=== PATIENT | female | born 1980 | race African-American/Black ===

== ENCOUNTER 2017-12-01 08:32 | Inpatient (IN) | payer OTHER ==
[2017-11-30 10:58] VITALS: BMI 40.6
[2017-12-01] MEDS ORDERED: MIDAZOLAM HCL 2 MG/2 ML SINGLE DOSE VIAL ONE (10:14)
[2017-12-01] MEDS ORDERED: fentaNYL CITRATE 250 MCG/5 ML VIAL ONE (10:34)
[2017-12-01] MEDS ORDERED: ROCURONIUM BROMIDE 50 MG/5 ML VIAL ONE ×2 (10:34→11:42)
[2017-12-01] MEDS ORDERED: PROPOFOL 20 ML ONE (10:35)
[2017-12-01] MEDS ORDERED: ceFAZolin SODIUM 1 GM VIAL IVPB ONE (10:43)
[2017-12-01] MEDS ORDERED: ceFAZolin SODIUM 1 GM VIAL ONE ×2 (11:02→11:42)
[2017-12-01] MEDS ORDERED: DEXAMETHASONE SOD PHOSPHATE 4 MG/1 ML VIAL ONE (11:42)
[2017-12-01] MEDS ORDERED: LIDOCAINE HCL/PF 2% SDV 5ML VIAL ONE (11:42)
[2017-12-01] MEDS ORDERED: LIDOCAINE HCL 2% JELLY (5 ML/TUBE) ONE (11:42)
[2017-12-01] MEDS ORDERED: NEOSTIGMINE METHYLSULFATE 0.5 MG/ML - 10 ML MDV ONE (12:27)
[2017-12-01] MEDS ORDERED: GLYCOPYRROLATE 0.2 MG/1 ML VIAL ONE (12:27)
--- NOTE | 2017-12-01 12:51 | HP ---
History & Physical Update - History History: No Change - Physical Physical: No Change - Assessment Assessment: No Change - Plan Plan: No Change Currently as noted:: Robotic vertical sleeve gastrectomy possible open
--- NOTE | 2017-12-01 12:53 | OP ---
Operative Note - Note: Operative Date: 12/01/17 Pre-Operative Diagnosis: Morbid obesity Operation: Robotic vertical sleeve gastrectomy, wedge liver biopsy, EGD Post-Operative Diagnosis: Other (Morbid obesity, hepatomegaly) Surgeon: Jean-Claude Schuster Materials Director: Rupesh Yeager Anesthesia: General Specimens Removed: Greater curvature of stomach, left lobe wedge liver biopsy Estimated Blood Loss (mls): 30 Drains & Tubes with Location: 36 Fr Bougie Operative Report Dictated: Yes
[2017-12-01] MEDS: HYDROmorphone HCL CARPU-JECT 1 MG/1 ML DISP.SYRIN IVPUSH PRN ×4 (12:58→15:30)
[2017-12-01] MEDS ORDERED: HYDROmorphone HCL CARPU-JECT 2 MG/1 ML DISP.SYRIN ONE ×2 (12:59→13:35)
[2017-12-01] MEDS: ACETAMINOPHEN 1000 MG/100 ML VIAL (NON FORMULARY) IVPB SCH ×2 (13:00→18:55)
[2017-12-01] MEDS ORDERED: BUPIVACAINE HCL/PF 0.5% (5MG/ML) 10 ML VIAL IJ ONE (13:03)
--- NOTE | 2017-12-01 13:05 | SURG ---
Surgery Profiling Machine Operator Note Profiling Machine Operator: Rupesh Yeager PA-C Date of Service: 12/01/17 Diagnosis: Morbid obesity Procedure: Robotic vertical sleeve gastrectomy, wedge liver biopsy, EGD I was present for the entirety of the operative procedure. For further detail, please refer to operative report. Visit type - Case Type Case Type: Scheduled Admission - New patient This patient is new to me today: Yes Date on this admission: 12/01/17
[2017-12-01] MEDS: METOCLOPRAMIDE HCL INJECTION 10 MG/2 ML VIAL IVPUSH SCH ×2 (13:10→18:27)
[2017-12-01] MEDS ORDERED: ONDANSETRON 4 MG/2 ML VIAL IVPUSH PRN (13:17)
[2017-12-01] MEDS: ONDANSETRON 4 MG/2 ML VIAL IVPUSH SCH ×3 (13:20→20:47)
[2017-12-01] MEDS ORDERED: LACTATED RINGERS SOLUTION 1,000 ML IV SCH (13:30)
[2017-12-01 13:38] LABS: HEMATOCRIT 34.4 % (32.4-45.2); HEMOGLOBIN 10.7 GM/dL (10.7-15.3); MCH 26.6 pg (25.7-33.7); MEAN CELL VOLUME 85.7 fl (80-96); MEAN PLT VOLUME 6.4 fl (7.5-11.1); PLATELET COUNT 342 K/MM3 (134-434); RBC 4.01 M/mm3 (3.60-5.2); RDW 16.5 % (11.6-15.6); WHITE BLOOD COUNT 13.6 K/mm3 (4.0-10.0)
[2017-12-01 14:26] LABS: ALBUMIN 3.2 g/dl (3.4-5.0); ANION GAP 9 (8-16); BLOOD UREA NITROGEN 8 mg/dL (7-18); CALCIUM 8.6 mg/dL (8.5-10.1); CHLORIDE 105 mmol/L (98-107); CO2 26 mmol/L (21-32); CREATININE 0.6 mg/dL (0.55-1.02); GLUCOSE,RANDOM 112 mg/dL (74-106); POTASSIUM 3.6 mmol/L (3.5-5.1); SGOT/AST 18 U/L (15-37); SGPT/ALT 18 U/L (12-78); SODIUM 140 mmol/L (136-145)
[2017-12-01 14:27] LABS: ALK PHOS 55 U/L (45-117); BILIRUBIN,TOTAL 0.4 mg/dL (0.2-1.0)
[2017-12-01] MEDS: SODIUM CHLORIDE 1,000 ML IV SCH (15:00)
[2017-12-01] MEDS: HYDROmorphone HCL CARPU-JECT 2 MG/1 ML DISP.SYRIN IVPB PRN (18:13)
--- NOTE | 2017-12-01 18:50 | SPEC ---
DATE OF OPERATION: 12/01/2017 SURGEON: Jean-Claude Schuster M.D. ELECTRONIC MUSICAL INSTRUMENT REPAIRER: Wendy Rebolledo PREOPERATIVE DIAGNOSIS: Morbid obesity, body mass index 40.6. POSTOPERATIVE DIAGNOSIS: Morbid obesity, body mass index 40.6, and hepatomegaly. PROCEDURE: Robotic vertical sleeve gastrectomy, robotic wedge liver biopsy, and upper endoscopy/esophagogastroduodenoscopy. SPECIMENS: Greater curvature of the stomach and left lobe wedge liver biopsy. ESTIMATED BLOOD LOSS: 30 mL. DRAINS: None. ANESTHESIA: GET 36 Polish bougie. REASON FOR THE PROCEDURE: This is a 37-year-old female who presents to the office for weight loss options. After describing different options, decided to proceed with a robotic vertical sleeve gastrectomy, possible liver biopsy and upper endoscopy , possible open. RISKS AND BENEFITS: After describing the different options for management of weight loss, the patient decided to proceed with a robotic laparoscopic, possible open vertical sleeve gastrectomy. The patient was seen by the respective subspecialities and cleared for surgery. The risks and benefits of the procedure were explained. These included bleeding, infection, hernia, OR, DVT, PE, injury to surrounding structures including the liver, colon, bowel, spleen, esophagus, vessel injury, nerve injury, weight regain, gastric leak, staple line leak, sleeve leak, obstruction, vitamin deficiency, hair loss, and as some of the possible complications. The patient understood and signed informed consent. DESCRIPTION OF PROCEDURE: The patient was placed supine on the operating room table. The patient underwent general endotracheal intubation. A Alanis catheter was inserted by the nursing staff. The arms were brought out at 90 degrees and secured. A foot board was placed and the legs were secured laterally with padding. The abdomen was prepped and draped in the usual sterile fashion. A time-out was performed. An incision was made superior and to the left of the umbilicus. A Veress needle was inserted. Pneumoperitoneum was established. Subsequently the Veress needle was removed. An 8-mm robotic trocar was placed under direct visualization with the laparoscope. Inspection of the abdominal cavity was performed. An 8-mm trocar was then placed in the left abdominal wall approximately 6 to 7 cm to the left of the initial trocar. An 8-mm robotic trocar was then placed in the left abdominal wall approximately 6 to 7 cm to the left of the initial trocar. A 12-mm robotic trocar was then placed in the right abdominal wall approximately 6 to 7 cm to the right of the initial trocar and an 8-mm robotic trocar placed approximately 6 to 7 cm lateral to the 12-mm trocar. A stab wound was made in the subxiphoid area and a Dawn clamp inserted and removed to dilate the tract. A Heath liver retractor was inserted. The post was secured at the bedside by the nursing staff. The patient was placed in steep reverse Trendelenburg position and the Heath liver retractor was used to secure the liver towards the anterior abdominal wall. The robot was brought over the field and docked. Dissection was performed at the console. The pylorus was identified and 6 cm proximal to it the lesser sac was entered using the vessel sealer. From this point cephalad all lateral attachments to the greater curvature of the stomach including the short gastric vessels were ligated using the vessel sealer towards the gastrosplenic and gastrophrenic ligaments. Once this was done in its entirety, all tubes within the nasal or oropharyngeal cavity including a temperature probe was confirmed to be removed by Anesthesia. The bougie was then inserted by Anesthesia. Transection of the stomach was then begun staying adjacent to the bougie, but away from the angularis. Transection of the stomach was performed near the portion of the stomach where the lesser sac was entered. Two robotic green pam were used at this location. Robotic blue pam were then used for the remainder of the transection until the greater curvature of the stomach was fully transected. Again this was done staying close to the bougie. Care was taken to stay away from the angle of His cephalad. The staple line was then inspected. Hemostasis was identified. A leak test was then performed. The stomach was clamped distally to the staple line. Irrigation solution was placed in the left upper quadrant and air insufflated by Anesthesia into the sleeve. No leaks were identified and no obstruction was identified. This was done throughout the staple line. At this point, the irrigation solution was suctioned and again hemostasis noted. A wedge liver biopsy was then performed. A portion of the left lobe of the liver was identified and an edge of it grasped. Using electrocautery a wedge of this portion of the liver was excised. The specimen was removed from the abdominal cavity and sent off the field. Hemostasis of the biopsy site as attained using electrocautery. The robotic instruments were then removed. The robot was undocked from the operative field. The 12-mm robotic trocar was removed and the greater curvature specimen removed from this site using a sponge stick brown. The specimen was inspected and the Veress needle inserted. The specimen insufflated adequately and no leak was identified. The staple line was noted to be straight and intact. A Chris- Bairon device was then used to close the fascia with a 0 Vicryl suture at this site. The liver retractor was removed under direct visualization. Pneumoperitoneum was desufflated and the fascial suture was secured. Hemostasis was noted at all incision sites and Marcaine was injected at all incision sites. All incision sites were closed using 4-0 Biosyn. Sterile dressings were applied. The patient tolerated the procedure well and was transferred to the recovery room in stable condition with a Alanis catheter intact. The patient was transferred to telemetry for further monitoring. ADDENDUM: In addition, an upper endoscopy was performed at the end of the case to evaluate for leak obstruction. The entirety of the esophagus, GE junction, sleeve pouch and staple line was inspected. Hemostasis was noted. No obstruction or leak was noted. The endoscope was used to suction the stomach and was removed in its entirety. The patient tolerated the procedure well and was sent to recovery room in stable condition. Fátima [id number] AMADOU
[2017-12-01] MEDS ORDERED: PT OWN MED DRAWER 7, Y5N ONE (19:35)
[2017-12-01] MEDS: FAMOTIDINE 20 MG/50 ML IVPB 20 MG/50 ML MG IVPB SCH (21:00)
[2017-12-01] MEDS: ENOXAPARIN NA (PORCINE) 40 MG/0.4 ML DISP.SYRIN SQ SCH (21:01)
[2017-12-02] MEDS ORDERED: PT OWN MED DRAWER 7, Y5N ONE ×2 (00:24→11:42)
[2017-12-02] MEDS: ONDANSETRON 4 MG/2 ML VIAL IVPUSH SCH ×5 (00:44→19:22)
[2017-12-02] MEDS: METOCLOPRAMIDE HCL INJECTION 10 MG/2 ML VIAL IVPUSH SCH ×4 (00:44→19:22)
[2017-12-02] MEDS: ACETAMINOPHEN 1000 MG/100 ML VIAL (NON FORMULARY) IVPB SCH ×2 (00:44→06:16)
[2017-12-02] MEDS: SODIUM CHLORIDE 1,000 ML IV SCH ×3 (04:30→17:26)
[2017-12-02] MEDS: HYDROmorphone HCL CARPU-JECT 2 MG/1 ML DISP.SYRIN IVPB PRN ×4 (04:30→20:10)
[2017-12-02 07:06] LABS: HEMATOCRIT 33.7 % (32.4-45.2); HEMOGLOBIN 10.7 GM/dL (10.7-15.3); MCHC 31.6 g/dl (32.0-36.0); MEAN CELL VOLUME 85.5 fl (80-96); MEAN PLT VOLUME 6.7 fl (7.5-11.1); PLATELET COUNT 334 K/MM3 (134-434); RBC 3.94 M/mm3 (3.60-5.2); RDW 16.7 % (11.6-15.6); WHITE BLOOD COUNT 9.2 K/mm3 (4.0-10.0)
[2017-12-02 07:32] LABS: ALBUMIN 3.1 g/dl (3.4-5.0); ALK PHOS 56 U/L (45-117); ANION GAP 9 (8-16); BILIRUBIN,TOTAL 0.4 mg/dL (0.2-1.0); BLOOD UREA NITROGEN 5 mg/dL (7-18); CALCIUM 8.1 mg/dL (8.5-10.1); CHLORIDE 106 mmol/L (98-107); CO2 24 mmol/L (21-32); CREATININE 0.5 mg/dL (0.55-1.02); GLUCOSE,RANDOM 83 mg/dL (74-106); POTASSIUM 3.8 mmol/L (3.5-5.1); SGOT/AST 23 U/L (15-37); SGPT/ALT 25 U/L (12-78); SODIUM 139 mmol/L (136-145); TOT PROT 6.7 g/dl (6.4-8.2)
[2017-12-02] MEDS: FAMOTIDINE 20 MG/50 ML IVPB 20 MG/50 ML MG IVPB SCH ×2 (09:35→22:29)
[2017-12-02] MEDS: ENOXAPARIN NA (PORCINE) 40 MG/0.4 ML DISP.SYRIN SQ SCH ×2 (09:35→22:29)
--- NOTE | 2017-12-02 09:45 | PN ---
Progress Note (short form) - Note Progress Note: POD #1 Alert. Resting comfortably. C/o mild incisional tenderness. Adequate pain control via prn meds. Ambulating. Voiding. Denies n/v/f/c, CP or SOB. AVSS. Afebrile. UGI 1/10: no extravasation/leak/outlet obstruction Gen: alert. nad ABD: morbidly obese. All surgical ports c/d/i. LE: SCDs bilat. NT. Problem List - Problems (1) Morbid obesity due to excess calories Assessment/Plan: POD #1 Robotic vertical sleeve gastrectomy, wedge liver biopsy, EGD BST1 diet ordered OOB and ambulate Pain meds prn dc planning Code(s): E66.01 - MORBID (SEVERE) OBESITY DUE TO EXCESS CALORIES
[2017-12-02] MEDS ORDERED: ACETAMINOPHEN 325 MG TABLET (FP) PO PRN (10:47)
--- NOTE | 2017-12-02 17:03 | PATH ---
Surgical Pathology Report Patient Name: ARYA PÉREZ [facility]. Rec. #: [id number] /Age/Gender: 1980 (Age: 37) / F Account: [id number] Location: 4 SO PEDS/ADOL Taken: 12/01/2017 Received: 12/01/2017 Reported: 12/02/2017 Physicians: Jean-Claude Schuster M.D. Specimen(s) Received A: LIVER BIOPSY B: GREATER CURVATURE STOMACH Clinical History Morbid obesity Final Diagnosis A. LIVER, WEDGE BIOPSY: LIVER PARENCHYMA WITH MINIMAL STEATOSIS (<1%). NO INCREASE IN IRON AND FIBROSIS ON PERFORMED SPECIAL STAINS (IRON AND TRICHROME). B. STOMACH, GREATER CURVATURE, ROBOTIC VERTICAL SLEEVE GASTRECTOMY: PORTION OF STOMACH WITH MILD CHRONIC GASTRITIS. IMMUNOHISTOCHEMICAL STAIN FOR H. PYLORI IS NEGATIVE. Electronically Signed Sharona Osorio M.D. Gross Description A. Received in formalin labeled "liver biopsy," is a 2.0 x 1.4 x 0.6 cm to-brown, irregular portion of soft tissue. The specimen is bisected and entirely submitted in one cassette. B. Received in formalin, labeled "greater curvature of stomach," is a 104 gram, 16.5 x 3.5 x 2.8 cm. portion of stomach with a stapled margin of resection. The serosa is to-schroeder with minimal attached fat. The mucosa is to-pink with normal folds. No mucosal masses are identified. Head Soft Sugar Operator sections are submitted in one cassette. DL/12/01/2017 saudi12/01/2017
--- NOTE | 2017-12-02 19:20 | PN ---
Progress Note (short form) - Note Progress Note: POD 1 Pain controlled No nausea Vital Signs Period Temp Pulse Resp BP Sys/Nice Pulse Ox Last 24 Hr 98.2 F-98.6 F 73-100 16-20 129-154/73-105 100-100 Abd soft CBC,CMP WBC 9.2 K/mm3 (4.0-10.0) D 12/02/17 06:30 RBC 3.94 M/mm3 (3.60-5.2) 12/02/17 06:30 Hgb 10.7 GM/dL (10.7-15.3) 12/02/17 06:30 Hct 33.7 % (32.4-45.2) 12/02/17 06:30 MCV 85.5 fl (80-96) 12/02/17 06:30 MCH 27.0 pg (25.7-33.7) 12/02/17 06:30 MCHC 31.6 g/dl (32.0-36.0) L 12/02/17 06:30 RDW 16.7 % (11.6-15.6) H 12/02/17 06:30 Plt Count 334 K/MM3 (134-434) 12/02/17 06:30 MPV 6.7 fl (7.5-11.1) L 12/02/17 06:30 Sodium 139 mmol/L (136-145) 12/02/17 06:30 Potassium 3.8 mmol/L (3.5-5.1) 12/02/17 06:30 Chloride 106 mmol/L (98-107) 12/02/17 06:30 Carbon Dioxide 24 mmol/L (21-32) 12/02/17 06:30 Anion Gap 9 (8-16) 12/02/17 06:30 BUN 5 mg/dL (7-18) L D 12/02/17 06:30 Creatinine 0.5 mg/dL (0.55-1.02) L 12/02/17 06:30 Creat Clearance w eGFR > 60 (>60) 12/02/17 06:30 Random Glucose 83 mg/dL (74-106) D 12/02/17 06:30 Calcium 8.1 mg/dL (8.5-10.1) L 12/02/17 06:30 Total Bilirubin 0.4 mg/dL (0.2-1.0) 12/02/17 06:30 AST 23 U/L (15-37) D 12/02/17 06:30 ALT 25 U/L (12-78) D 12/02/17 06:30 Alkaline Phosphatase 56 U/L (45-117) 12/02/17 06:30 Total Protein 6.7 g/dl (6.4-8.2) 12/02/17 06:30 Albumin 3.1 g/dl (3.4-5.0) L 12/02/17 06:30 Serum , Qual Negative 12/01/17 08:42 UGI: no leak/obstruction Clears Ambulate
[2017-12-03] MEDS: oxyCODONE HCL 5 MG TABLET PO PRN ×2 (01:14→06:23)
[2017-12-03 02:15] VITALS: TEMP 99
[2017-12-03 06:23] VITALS: BP 137/84; PULSE 84
[2017-12-03] MEDS: SODIUM CHLORIDE 1,000 ML IV SCH (06:25)
--- NOTE | 2017-12-24 14:59 | DS ---
Physical Examination Vital Signs: Vital Signs Temperature 99 F 12/03/17 06:00 Pulse Rate 84 12/03/17 06:00 Respiratory Rate 19 12/03/17 06:00 Blood Pressure 137/84 12/03/17 06:00 O2 Sat by Pulse Oximetry (%) 94 L 12/02/17 21:00 Constitutional: Yes: Calm Neck: Yes: WNL Cardiovascular: Yes: WNL Respiratory: Yes: WNL Gastrointestinal: Yes: Soft Neurological: Yes: Alert, Oriented Labs: CBC, BMP 12/02/17 06:30 12/02/17 06:30 Discharge Summary Reason For Visit: MORBID (SEVERE) OBESITY DUE TO EXCESS CALORIES Procedures: Principal: Sleeve gastrectomy Condition: Stable - Instructions Diet, Activity, Other Instructions: [address] [place] [address] Jean-Claude Schuster M.D. [address] [place] [address], [address] [facility] [address] [facility] [place] [address] Robotic, Bariatric and General Surgery Postoperative Instructions for Bariatric Surgery Activity: Resume normal everyday activity as tolerated. You may walk and climb stairs without any limitation. We encourage you to walk as often as you can Do not lift anything more than 10 pounds for 8 weeks. At that time, you can return to full activity, including the gym, without limitation. Do not drive a motor vehicle while taking prescribes narcotic pain medication. Wound Care: If you have a bandage in place, leave it on for 3 days. At that time you may remove the outer bandage. If there are strips of tape on the skin after removing the outer bandage, leave them in place. They will fall off by themselves. Do not remove them. If there is clear glue on the skin after removing the outer bandage, leave it in place. Do not pick at it or peel it off. You may shower after taking the outer bandage off, 3 days after your surgery. If incisions become red, warm or open, please call the office. Diet: Continue a sugar-free, non-carbonated Clear liquid diet three times a day for the first week-Stage I diet. In addition, you should drink 8 ounces of water every hour. When drinking, sips should be slow and steady, not large and quick. After the first week, call the office to be advanced to the next dietary stage. Do not advance stages until instructed. Your diet will be advanced over the phone each week. Medications/Pain Management: You may resume previous medications unless told otherwise. The pills may be swallowed whole or broken if scored. You may take the prescribed narcotic pain medication as needed. If the narcotic medication is not needed for pain control, you may take Tylenol. Avoid all other pain medications including Advil, Ibuprofen, Motrin, Aspirin, Naprosyn, Aleve, Celebrex. You will receive Pepcid. Please take this twice a day as prescribed. Dizziness,Headaches/Gas Pain: Make sure you are getting enough fluids daily. Patients on diuretics or water pills may need medication adjusted. Some fluids such as broth or Gatorade may help. Gas pains are common in the first few weeks after surgery. At times they can be worse than surgical pain. Walking can help. You can also use Mylanta, Maalox, or Gas-X. Vomiting/Nausea: This may occur if you eat too fast, don't chew, or eat too much. Go back to fluids. If the vomiting or nausea persists, call the office. Constipation/Diarrhea: You may experience a change in bowel habits. Many things affect this, including a decrease in food intake, not enough fluid and taking pain medication. Some people experience diarrhea after the barium swallow in x-ray. If either persist, call the office. Follow up: Call the office at [phone] for an appointment 2 weeks after your surgical procedure. Disposition: HOME - Home Medications Comprehensive Discharge Medication List: Ambulatory Orders Famotidine [Pepcid] 20 mg PO BID #60 tablet 12/01/17 Oxycodone HCl/Acetaminophen [Percocet 5-325 mg Tablet] 1 - 2 tab PO Q6H #28 tab MDD 4 12/01/17
== END 2017-12-03 11:02 | disposition home or self-care (01) | DRG 621 ==
LOC: JSAMEDAYSX 08:32 → J4S 17:00
PROVIDERS: ADMIT Surgery; ATTEND Surgery
PROC: 0DB64Z3 Excision of Stomach, Percutaneous Endoscopic Approach, Vertical (ICD-10-PCS; principal; 2017-12-01 10:00)
PROC: 0FB24ZX Excision of Left Lobe Liver, Percutaneous Endoscopic Approach, Diagnostic (ICD-10-PCS; 2017-12-01 10:00)
PROC: 0D968ZZ Drainage of Stomach, Via Natural or Artificial Opening Endoscopic (ICD-10-PCS; 2017-12-01 10:00)
DX: E66.01 Morbid (severe) obesity due to excess calories (principal); R16.0 Hepatomegaly, not elsewhere classified; Z68.41 Body mass index [BMI] 40.0-44.9, adult
CPT/HCPCS: 36415; 74241-TC; 80053; 84703; 85027; 86850; 86900; 86901; 88307-TC; 94010; 94760